=== PATIENT | male | born 1965 | race Caucasian/White ===

== ENCOUNTER → 2018-02-04 12:15 | Outpatient (CLI) | payer OTHER, SELFPAY ==
--- NOTE | 2018-02-04 12:17 | CI_ITS ---
Cerebrovascular Exam Indications: 785.9 Bruit. IMPRESSIONS 1. The bilateral vertebral arteries are patent with normal antegrade flow. 2. Study suggests less than 20% stenosis involving the right internal carotid artery and the left internal carotid artery. History: Risk factors: Current tobacco use. Hypertension. Diabetes mellitus. Hyperlipidemia. Carotid duplex study. Complete study and Doppler flow study including spectral analysis, color and james scale imaging. Height: Height: 167.6cm. Height: 66in. Weight: Weight: 96.6kg. Weight: 212.6lb. Body mass index: BMI: 34.4kg/m^2. Body surface area: BSA: 2.16m^2. Location: Vascular laboratory. Patient status: Outpatient. Tables: Arterial flow: + +--------+--------+ Location V sys V ed + +--------+--------+ Right CCA - proximal 133cm/s 28.3cm/s + +--------+--------+ Right CCA - distal 101cm/s 29.2cm/s + +--------+--------+ Right ECA 103cm/s -------- + +--------+--------+ Right ICA - proximal 58.7cm/s 22.3cm/s + +--------+--------+ Right ICA - mid 63.5cm/s 22.7cm/s + +--------+--------+ Right ICA - distal 64.6cm/s 25.1cm/s + +--------+--------+ Right vertebral 45cm/s -------- + +--------+--------+ Left CCA - proximal 115cm/s 17.6cm/s + +--------+--------+ Left CCA - distal 103cm/s 27.9cm/s + +--------+--------+ Left ECA 212cm/s -------- + +--------+--------+ Left ICA - proximal 89.6cm/s 25.9cm/s + +--------+--------+ Left ICA - mid 52.1cm/s 16.7cm/s + +--------+--------+ Left ICA - distal 50.6cm/s 19.6cm/s + +--------+--------+ Left vertebral 22.3cm/s -------- + +--------+--------+ (Report amended ) Electronically signed by: Yannick Huston [id number]
== END ==
PROVIDERS: PCP Family Medicine; Visit Provider Internal Medicine
DX: R20.2 Paresthesia of skin (principal)
CPT/HCPCS: 93880